=== PATIENT | female | born 1985 | race Caucasian/White ===

== ENCOUNTER 2017-05-24 23:56 | Emergency (ER) | payer SELFPAY ==
[~2017-05-24] VITALS: Ht 160 cm; Wt 52.2 kg
[2017-05-25] MEDS ORDERED: NKM (00:12)
[2017-05-25 01:13] LABS: APPEARANCE,URINE CLEAR; BILIRUBIN, URINE NEGATIVE (NEGATIVE); COLOR,URINE PALE YELLOW; GLUCOSE, URINE (UA) NEGATIVE (NEGATIVE); KETONES,URINE NEGATIVE (NEGATIVE); LEUKOCYTE ESTERASE ,URINE 2+ (NEGATIVE); NITRITE,URINE NEGATIVE (NEGATIVE); PH,URINE 5 (4.5-8.0); PROTEIN,URINE NEGATIVE (NEGATIVE); UROBILINOGEN,URINE NORMAL MG/DL (0.0-1.0)
[2017-05-25] MEDS ORDERED: NORCO 5-325 TA1 EACH ORAL (02:47)
[2017-05-25] MEDS ORDERED: IBUPROFEN600 MG ORAL (02:47)
[2017-05-25 03:15] VITALS: BP 126/78
--- NOTE | 2017-05-25 04:22 | Emergency Room Report ---
History of Present Illness General Chief Complaint: Lower Extremity Injury Source: Patient Present Illness HPI 31-year-old female presents ED for evaluation. Patient states she tripped and fell last night when walking down the stairs. Injured her right foot. Presents with pain and bruising to her right foot. 7/10, throbbing, nonradiating. Notes pain but is able to bear weight. Denies any other injuries. No other aggravating relieving factors. Denies any other associated symptoms Allergies: Coded Allergies: No Known Allergies (Unverified , 05/25/17) Patient History Past Medical History: none Past Surgical History: none Pertinent Family History: none Social History: Denies: smoking, alcohol use, drug use Last Menstrual Period: 2 months Now: No - Possible Immunizations: UTD Reviewed Nursing Documentation: PMH: Agreed, PSxH: Agreed Nursing Documentation-PMH Past Medical History: No Stated History Review of Systems All Other Systems: negative except mentioned in HPI Physical Exam Vital Signs Date Time Temp Pulse Resp B/P (MAP) Pulse Ox O2 Delivery O2 Flow Rate FiO2 05/25/17 00:09 98.1 78 16 121/80 99 Room Air Sp02 EP Interpretation: reviewed, normal General Appearance: no apparent distress, alert, GCS 15, non-toxic Head: normocephalic Eyes: bilateral eye normal inspection, bilateral eye PERRL ENT: normal ENT inspection Neck: normal inspection Respiratory: normal inspection Cardiovascular #1: normal inspection Gastrointestinal: normal inspection Rectal: deferred Genitourinary: no CVA tenderness Musculoskeletal: tender - R foot Neurologic: alert, oriented x3, responsive, motor strength/tone normal, sensory intact, speech normal Psychiatric: normal inspection Skin: normal inspection Lymphatic: normal inspection Procedures Splinting Splinting : Consent: Verbal Splint: poserior short Pre-Proc Neuro Vasc Exam: normal Post-Proc Neuro Vasc Exam: normal Patient Tolerated: Well Complications: None Medical Decision Making Diagnostic Impression: Primary Impression: Foot fracture Qualified Codes: S92.901A - Unspecified fracture of right foot, initial encounter for closed fracture ER Course Hospital Course 31-year-old F presents to ED complaining of R foot pain s/p trip and fall Differential diagnoses include: Fracture, dislocation, sprain, contusion Clinical course Patient placed on stretcher. After initial history and physical, I ordered xrays of R ankle/foot patient declined pain meds Xrays prelim read shows 5th metatarsal fx. Placed in posterior splint. Given crutches. will provide ortho referral Diagnosis - foot fx Stable and discharged to home with prescription for Motrin, [place]. apply ice, keep elevated. weight bear as tolerated. Followup with PMD/ortho. Return to ED if symptoms recur or worsen Other X-Ray Diagnostic Results Other X-Ray Diagnostic Results #1: X-Ray ordered: R foot # of Views/Limited Vs Complete: 3 View Indication: Pain EP Interpretation: Yes Interpretation: no dislocation, other - 5th metatarsal fx Impression: Other - fx Electronically Signed by: Electronically signed by Dwight Davis MD Other X-Ray Diagnostic Results #2: X-Ray ordered: R ankle # of Views/Limited Vs Complete: 3 View Indication: Pain EP Interpretation: Yes Interpretation: no dislocation, no soft tissue swelling, no fractures Impression: No acute disease Electronically Signed by: Electronically signed by Dwight Davis MD Last Vital Signs Date Time Temp Pulse Resp B/P (MAP) Pulse Ox O2 Delivery O2 Flow Rate FiO2 05/25/17 03:15 98.1 80 16 126/78 99 Room Air Status: improved Disposition: HOME, SELF-CARE Condition: Stable Scripts Hydrocodone Bit/Acetaminophen 5-325* (NORCO 5-325*) 1 Each Tablet 1 TAB ORAL Q6H Y for For Pain, #10 TAB 0 Refills Prov: DWIGHT DAVIS M.D. 05/25/17 Ibuprofen* (MOTRIN*) 600 Mg Tablet 600 MG ORAL Q8H Y for For Pain, #30 TAB 0 Refills Prov: DWIGHT DAVIS M.D. 05/25/17 Referrals: NOT CHOSEN MADELEINE/,REFERRING (PCP) FLORESITA HOYOS Patient Instructions: Metatarsal Fracture With [facility] DWIGHT DAVIS M.D. May 25, 2017 04:22
--- NOTE | 2017-05-25 10:11 | Diagnostic Imaging Report ---
Indication: Pain Technique: XRAY Ankle Compl Min 3v R Comparison: None Findings: There is no acute fracture or dislocation. Ankle mortise intact on these nonstress views. Alignment and joint spacing of the forefoot appears grossly preserved. No radiopaque foreign body seen. Impression: No evidence of acute bony or articular abnormality.
--- NOTE | 2017-05-25 10:15 | Diagnostic Imaging Report ---
Indication: Pain status post injury Technique: XRAY Foot Complete R Comparison: None Findings: There is an acute, mildly displaced fracture of the shaft of the fifth metatarsal. No additional acute fractures identified. Anatomic alignment and joint spacing appears within normal limits. There is a small os trigonum. On the lateral view there is an exophytic bone density along the dorsum of the foot near the tarsometatarsal junction, possibly large bone spur. Correlate with physical exam. Impression: Acute, mildly displaced fracture of the shaft of the fifth metatarsal. Exophytic bone density along the dorsum of the foot near the tarsal metatarsal junction. Possibly large bone spur. Correlate with physical exam and site of tenderness. Confirmation with CT or MR can be obtained as clinically indicated. This essentially corresponds with the statrad preliminary report.
== END 2017-05-25 03:15 | disposition home or self-care (01) ==
LOC: EMR 05-25 00:33
DX: S92.351A Displaced fracture of fifth metatarsal bone, right foot, initial encounter for closed fracture (principal); W10.9XXA Fall (on) (from) unspecified stairs and steps, initial encounter; Y92.9 Unspecified place or not applicable
CPT/HCPCS: 29515; 81001; 81025; 87086; 87181; 99284

== ENCOUNTER 2017-05-25 13:23 | Emergency (ER) | payer OTHER ==
[~2017-05-25] VITALS: Ht 160 cm; Wt 52.2 kg
[~2017-05-25 13:23] MED LIST: IBUPROFEN600 MG ORAL; NKM; NORCO 5-325 TA1 EACH ORAL
[2017-05-25 14:12] VITALS: BP 114/76
--- NOTE | 2017-05-25 21:16 | Emergency Room Report ---
History of Present Illness General Chief Complaint: Pain Source: Patient (IRASEMA LEHMAN) Present Illness HPI Patient is a 31-year-old female presenting for pain after splint was placed yesterday. She states that she fell downstairs and came to this emergency department where fracture of her metatarsal was diagnosed. A posterior splint was placed and the patient states that this is too tight. Pain is an 8/10 throbbing sensation to the entire foot. She also noticed some numbness to the area. She denies other symptoms including calf pain, rash, SOB, CP (IRASEMA LEHMAN) Allergies: Coded Allergies: No Known Allergies (Unverified , 05/25/17) Patient History Past Medical History: see triage record Pertinent Family History: none Last Menstrual Period: Two months ago - "irregular" Now: No Reviewed Nursing Documentation: PMH: Agreed, PSxH: Agreed (IRASEMA LEHMAN) Nursing Documentation-PMH Past Medical History: No Stated History (IRASEMA LEHMAN) Review of Systems All Other Systems: negative except mentioned in HPI (IRASEMA LEHMAN) Physical Exam Vital Signs Date Time Temp Pulse Resp B/P (MAP) Pulse Ox O2 Delivery O2 Flow Rate FiO2 05/25/17 13:29 97.5 85 16 114/76 97 Room Air Sp02 EP Interpretation: reviewed, normal General Appearance: no apparent distress, alert, GCS 15, non-toxic Head: normocephalic, atraumatic Eyes: bilateral eye normal inspection, bilateral eye PERRL ENT: hearing grossly normal, normal pharynx, no angioedema, normal voice Musculoskeletal: no calf tenderness, decreased range of motion, tender - TTP over the R lateral aspect of foot proximal to MTPJ Neurologic: alert, oriented x3, responsive, motor strength/tone normal, sensory intact, speech normal Psychiatric: judgement/insight normal, memory normal, mood/affect normal, no suicidal/homicidal ideation Skin: normal color, no rash, warm/dry, well hydrated (IRASEMA LEHMAN) Medical Decision Making PA Attestation Dr. Burrell is my supervising physician. Patient management was discussed with my supervising physician (IRASEMA LEHMAN) Diagnostic Impression: Primary Impression: Foot fracture Qualified Codes: S92.901D - Unspecified fracture of right foot, subsequent encounter for fracture with routine healing ER Course Patient is a 31-year-old female presenting for pain after splint was placed yesterday Ddx considered include but not limited to sprain/strain, fracture, contusion, compartment syndrome PE: NAD Posterior splint is in place TTP over the R lateral aspect of foot proximal to MTPJ. No edema. Cap refill less than 2 seconds. Sensation is intact to light touch The splint was removed and a new dressing was applied with the existing splint. The patient states that this feels much better. She is discharged home. She has prescription for pain medication at home as well as referral to see orthopedics ER precautions given (IRASEMA LEHMAN) Last Vital Signs Date Time Temp Pulse Resp B/P (MAP) Pulse Ox O2 Delivery O2 Flow Rate FiO2 05/25/17 14:12 97.5 16 114/76 97 Room Air 05/25/17 13:29 85 Status: improved (IRASEMA LEHMAN) Reevaluation Impression Culture of urine P mirablilis - sensitive to all. Called and left message to call us. (Daniel Dewitt M.D.) Disposition: HOME, SELF-CARE Condition: Improved Referrals: MICHAEL SOTELO,REFERRING (PCP) Patient Instructions: Metatarsal Fracture Additional Instructions: I discussed my findings with the patient. All questions and concerns have been answered. Treatment and medication compliance have been addressed. Return to ED if pain remains or worsens, numbness or tingling occurs, new rash is noticed, fever is noticed, or if needed for any reason. Patient verbalized understanding of discharge instructions. The patient obtained a referral for orthopedics. She will followup as soon as possible IRASEMA LEHMAN May 25, 2017 21:16 Daniel Dewitt M.D. May 28, 2017 08:40
== END 2017-05-25 14:12 | disposition home or self-care (01) ==
LOC: EMR 14:01
DX: S92.301D Fracture of unspecified metatarsal bone(s), right foot, subsequent encounter for fracture with routine healing (principal)
CPT/HCPCS: 99283